=== PATIENT | female | born 1945 | race African-American/Black ===

== ENCOUNTER 2017-04-26 11:34 | Inpatient (IN) | payer MEDICARE, MEDICAID ==
--- NOTE | 2017-04-26 12:06 | ED Physician Chart ---
Chief Complaint/HPI - Patient Information Date Seen:: 04/26/17 Time Seen:: 11:45 Chief Complaint:: lethargy History of Present Illness:: Patient was noted to be more lethargic than normal this morning. The staff at her senior care facility attributed that to the [place] 7.5 mg/ 325 mg that she takes 4 times per day. Patient was in [facility] for 10 days being discharged April 14. She was admitted there for confusion as demonstrated by garbled speech. She was diagnosed as having stage IV decubiti, sepsis, hypotension, urinary tract infection. and a heart valve infection. Paramedics EKG showed a sinus tach at a rate of 150. Daughter stressed that the patient is a DNR. Allergies:: Allergies Allergy/AdvReac Type Severity Reaction Status Date / Time No Known Allergies Allergy Verified 04/26/17 11:37 Vitals:: Vital Signs - 8 hr 04/26/17 11:37 Temp 98.6 F HR 115 RR 23 BP 90/40 O2 Sat % 82 Historian:: Family Member Review:: Nurse's Note Reviewed Review of Systems - Review of Systems General/Constitutional: No fever, No chills Skin: Skin lesions Head: No headache Eyes: No loss of vision ENT: No earache Neck: No neck pain Cardio Vascular: No chest pain Pulmonary: No SOB GI: No vomiting, No diarrhea G/U: No dysuria, No hematuria Musculoskeletal: No bone or joint pain Endocrine: No polyuria Hematopoietic: No bruising Allergic/Immuno: No urticaria Neurological: Confusion Past Medical History - Past Medical History Past Medical History: Other (status post sepsis; status post urinary tract infection; arthritis of knee and hip; anemia; hypothyroidism; malnutrition; hyperlipidemia; mentioned) Family History: HTN Social History: Non Smoker, No Alcohol Surgical History: PEG/GTube, other (debridement of sacral decubiti) Psychiatricy History: Other Family Medical History - Family Member Mother History Unknown: Yes Physical Exam - Physical Examination Other Gen/Cons comments:: Chronically ill-appearing; nonverbal Head: Atraumatic Eyes: Lids, conjuctiva normal, PERRL Other Eyes comments:: Pupils about 1 mm Skin: Nl inspection, No rash ENMT: External ears, nose nl, Lips, teeth, gums nl Neck: No bruit, No mass Respiratory: Nl effort/Exclusion, Clear to Auscultation Cardio Vascular: RRR, NL S1 S2 GI: Nondistended, No mass/bruits Other GI comments:: Diffuse abdominal tenderness Other Extremities comments:: 2.5 out of 4 bilateral pretibial pitting edema Neuro/Psych: No focal deficits Labs/Radiology/EKG Results - Lab Results Results: Laboratory Results - last 24 hr 04/26/17 04/26/17 04/26/17 12:15 12:16 12:16 WBC 19.7 H RBC 3.19 L Hgb 8.7 L Hct 25.8 L MCV 81.1 MCH 27.3 MCHC Differential 33.6 RDW 20.6 H Plt Count 539 H MPV 8.1 Band Neutrophils % 2 Neutrophils (Manual) 80 Lymphocytes 7 L Monocytes 10 Eosinophils 1 Platelet Estimate INCREASED PLATELETS Platelet Morphology GIANT PLATELETS SEEN Anisocytosis 1+ RBC Morph Micro Appear ABNORMAL Sodium 131 L Potassium 4.2 Chloride 101 Carbon Dioxide 24.8 Anion Gap 9.4 BUN 24 Creatinine 1.0 Est GFR ( Amer) TNP Est GFR (Non-Af Amer) TNP BUN/Creatinine Ratio 24.0 Glucose 136 H Whole Bld Lactic Acid Calcium 8.2 L Lipase Urine Source [place] Urine Color YELLOW Urine Clarity SLIGHTLY CLOUDY Urine pH 5.0 Ur Specific [place] 1.020 Urine Protein 100 H Urine Glucose (UA) NEGATIVE Urine Ketones TRACE Urine Blood MODERATE H Urine Nitrate NEGATIVE Urine Bilirubin NEGATIVE Urine Urobilinogen 1.0 Ur Leukocyte Esterase SMALL H Urine RBC 5-10 H Urine WBC 10-25 H Ur Epithelial Cells MODERATE Urine Bacteria MANY Urine Yeast MODERATE H 04/26/17 04/26/17 12:16 12:16 WBC RBC Hgb Hct MCV MCH MCHC Differential RDW Plt Count MPV Band Neutrophils % Neutrophils (Manual) Lymphocytes Monocytes Eosinophils Platelet Estimate Platelet Morphology Anisocytosis RBC Morph Micro Appear Sodium Potassium Chloride Carbon Dioxide Anion Gap BUN Creatinine Est GFR ( Amer) Est GFR (Non-Af Amer) BUN/Creatinine Ratio Glucose Whole Bld Lactic Acid 3.44 H* Calcium Lipase 7 L Urine Source Urine Color Urine Clarity Urine pH Ur Specific [place] Urine Protein Urine Glucose (UA) Urine Ketones Urine Blood Urine Nitrate Urine Bilirubin Urine Urobilinogen Ur Leukocyte Esterase Urine RBC Urine WBC Ur Epithelial Cells Urine Bacteria Urine Yeast - Radiology Results Comments:: Chest x-ray showed bilateral pneumonia with superimposed congestion and right pleural effusion. CT abdomen and pelvis showed anasarca, fecal impaction and calcified uterine fibroid. Assessment - Assessment General Assessment: Needs admission for pneumonia. She may also have an infected sacral decubiti. ED Septic Shock - . Is Septic Shock (SBP<90, OR Lactate>4 mmol\L) present?: No - <6hrs of presentation: Vital Signs: Vital Signs - 8 hr 04/26/17 11:37 Temp 98.6 F HR 115 RR 23 BP 90/40 O2 Sat % 82 Reassessment (Disposition) - Reassessment Reassessment Condition:: Unchanged - Diagnosis Diagnosis:: Sacral decubiti; leukocytosis; pneumonia; sepsis; anemia - Patient Disposition Admitted to:: Med/Surg Spoke to:: Chuckie Bellamy Admitting Medical Physician:: Chuckie Bellamy Condition at Disposition:: Unchanged
[2017-04-26] MEDS ORDERED: Mag Sulfate 2gm/50mL Premix 2 GM/50 ML BAG IV ONE ×2 (12:14→12:20)
[2017-04-26 12:28] LABS: HEMATOCRIT 25.8 % (35.0-45.0); HEMOGLOBIN 8.7 gm/dL (11.7-16.1); MEAN CELL VOLUME 81.1 fl (81-100); MEAN CORPUSCULAR HEMOGLOBIN 27.3 pg (27.0-31.0); MEAN CORPUSCULAR HGB CONC 33.6 pg (28.0-36.0); MEAN PLATELET VOLUME 8.1 fl; PLATELET COUNT 539 Th/cmm (150-400); RED BLOOD COUNT 3.19 Mil/cmm (3.80-5.20); RED CELL DISTRIBUTION WIDTH 20.6 % (11.5-20.0)
[2017-04-26 12:38] LABS: WHITE BLOOD COUNT 19.7 Th/cmm (4.8-10.8)
[2017-04-26 12:41] LABS: URINE BILIRUBIN NEGATIVE (NEGATIVE); URINE BLOOD MODERATE (NEGATIVE); URINE COLOR YELLOW; URINE GLUCOSE (UA) NEGATIVE (NEGATIVE); URINE KETONE TRACE mg/dL (NEGATIVE); URINE PROTEIN 100 mg/dL (NEGATIVE)
[2017-04-26 12:42] LABS: ANION GAP 9.4 (7.0-16.0); BUN - UREA NITROGEN 24 mg/dL (7-25); CALCIUM SERUM 8.2 mg/dL (8.6-10.3); CARBON DIOXIDE 24.8 mEq/L (21.0-31.0); CHLORIDE 101 mEq/L (98-107); GLUCOSE 136 mg/dL (70-105); POTASSIUM SERUM 4.2 mEq/L (3.5-5.1); SODIUM SERUM 131 mEq/L (136-145)
[2017-04-26 13:19] LABS: URINE BACTERIA MANY /hpf (NONE SEEN); URINE EPITHELIAL CELLS MODERATE /lpf (FEW)
[2017-04-26 13:41] LABS: BAND NEUTROPHILE 2 % (0-10); EOSINOPHIL 1 % (0-5); NEUTROPHILS 80 % (40-80); TOTAL CELLS COUNTED 100
[2017-04-26 13:42] LABS: ANISOCYTOSIS 1+; PLATELET ESTIMATE INCREASED PLATELETS (NORMAL); PLATELET MORPHOLOGY GIANT PLATELETS SEEN (NORMAL)
--- NOTE | 2017-04-26 13:49 | Diagnostic Imaging Report ---
Exam: CT examination abdomen pelvis. HISTORY: Abdominal pain. Total DLP equals 746 CTDI equals 16.4 Findings: The study is limited due to patient being agitated and combative. Multiple contiguous thin section of the abdomen pelvis obtained from lower thorax to pubic symphysis without administration intravenous or oral contrast material. No prior studies available comparison. The study demonstrates bilateral pneumonic infiltrates with superimposed effusions. Pulmonary edema changes cannot be excluded. The visualized liver parenchyma and spleen are intact. Gastrostomy tube is noted in the stomach. The stomach distended with food content. Diffuse atherosclerotic changes of abdominal aorta appreciated. The gallbladder is intact. Residual contrast material most likely from previous examinations present in the colon. The kidneys demonstrate no evidence of obstructive uropathy or nephrolithiasis. The visualized adrenal glands are intact. Large amount of fecal content is noted throughout the colon. There is evidence for enlarged uterus with extensive fibroid infiltration there is evidence for multiple calcification within the urinary fibroid mass. The overall diameter of the uterus is 10.5 cm in transverse diameter. There is evidence of anasarca. Urinary bladder contains a Bello catheter. Bony structures demonstrate no evidence for lytic or blastic changes. IMPRESSION: 1. Bilateral pneumonia superimposed effusions aeration of pulmonary edema/congestive heart failure changes 2. Distended stomach with food content the gastrostomy tube in the stomach 3. Fecal impaction, question of residual contrast material from previous examination. 4. Enlarged fibroid uterus with calcifications.+ 5. Anasarca
--- NOTE | 2017-04-26 14:33 | Diagnostic Imaging Report ---
Exam: Portable examination of chest HISTORY: Possible pneumonia. Findings: Portable upright examination of the chest at 1245 hours reviewed no prior studies available comparison. Bony thorax is unremarkable for degenerative osteopenia. Mediastinal structures midline the heart is not enlarged. Bilateral pneumonic infiltrates appreciated with mild congestion. There is evidence for right pleural effusion. Right-sided PICC line terminates in superior vena cava. IMPRESSION: Bilateral pneumonia superimposed congestion. Right pleural effusion. Follow-up examination recommended.
[2017-04-26] MEDS ORDERED: Piperacillin Sodium/Tazobact 3.375 gm Vial IV ONE (15:24)
[2017-04-26] MEDS ORDERED: Sodium Chloride 0.45% 1,000 ML IV SCH (17:10)
[2017-04-26] MEDS ORDERED: Morphine Sulfate 2 mg/mL 1mL Syr IVP PRN (19:36)
[2017-04-26] MEDS ORDERED: Vancomycin HCl 500 MG in Sodium Chloride 0.9% 100 ML IV SCH (20:00)
--- NOTE | 2017-04-26 22:16 | Consultation ---
Consult Note - Consult Note Service Date: 04/26/17 Referring Physician: Chuckie Bellamy Consult Note: PHYSICIAN Consultation Note: Date of Admission: 04/26/17 Purpose of Consultation: Sepsis, pneumonia. Chief Complaint: Patient HARSHIL AGN was admitted to location Intensive Care Unit with SEPSIS, PNA. History of Present Illness: Patient is 71-year-old female with a past medical history of Arthritis of knee and hip; anemia; hypothyroidism; malnutrition; hyperlipidemia, dementia, hypothymism, patient history or sepsis and UTI, brought in from nursing facility for altered mental status. As per the records patient was recently discharged from [facility]. As patient became more lethargic and altered. She was sent to the ER for further evaluation and management. On initial evaluation, patient was afebrile, she was tachycardic with heart rate in 150s and WBC count was 19,700 with left shift. Her lactic acid was also elevated, it was 3.44 and it came down to 2.79. Urinalysis showed pyuria and bacteria. CT scan of the abdomen and pelvis showed bilateral infiltrates with congestion. Patient was started on vancomycin and Zosyn. An ID consult was called for further antibiotic management. Past Medical History: Arthritis of knee and hip; anemia; hypothyroidism; malnutrition; hyperlipidemia , dementia, hypothymism, patient history or sepsis and UTI. Allergies Allergy/AdvReac Type Severity Reaction Status Date / Time No Known Allergies Allergy Verified 04/26/17 11:37 Vital Signs Temp 98.2 F 04/26/17 21:00 Pulse 113 04/26/17 21:00 Resp 23 04/26/17 21:00 BP 114/46 04/26/17 21:00 Pulse Ox 86 04/26/17 21:00 Intake & Output 04/26/17 04/26/17 04/27/17 06:59 18:59 06:59 Intake Total 50 Balance 50 Intake: Intake, IV Amount 50 Laboratory Results - last 24 hr 04/26/17 04/26/17 19:09 21:17 Whole Bld Lactic Acid 2.09 H* 1.77 Home Medication Medication Instructions Recorded Type Arginine/Ascorbate Sod/Amalia AC 1 each PO DAILY 04/26/17 History [Arginaid Powder] Ascorbic Acid [Vitamin C] 500 mg GT DAILY 04/26/17 History Atorvastatin Calcium [Lipitor] 10 mg GT DAILY 04/26/17 History Enoxaparin [Lovenox] 40 mg SUBQ DAILY 04/26/17 History Ferrous Sulfate [Iron] 300 mg GT DAILY 04/26/17 History Hydrocodone/Acetaminophen [[place] 1 tab GT Q6H 04/26/17 History 7.5-325 Tablet] L. Acidophilus/L.bulgaricus 1 each GT BID 04/26/17 History [Lactinex Chewable Tablet] Lactulose 20 gm GT DAILY PRN 04/26/17 History Levothyroxine [Synthroid] 75 mcg GT DAILY 04/26/17 History Lorazepam [Ativan] 0.5 mg PO Q12H PRN 04/26/17 History Magnesium Oxide [Mag-Oxide] 400 mg GT BID 04/26/17 History Metoprolol Succinate 25 mg GT DAILY 04/26/17 History Mirtazapine [Remeron] 15 mg GT HS 04/26/17 History Multivitamin [Daily Amalia] 1 tab GT DAILY 04/26/17 History Vit B12/Intrinsic Fact/Folate 1 each GT BID 04/26/17 History [Intrinsi [id number] Tablet] Zinc Sulfate 220 mg GT DAILY 04/26/17 History Current Medications Generic Name Dose Route Start Last Admin Trade Name Freq PRN Reason Stop Dose Admin Furosemide 40 mg 04/27/17 09:00 Lasix IVP 04/27/17 09:01 X1 ONE Norepinephrine Bitartrate 4 mg 254 mls @ 0 mls/hr 04/26/17 17:20 / Dextrose IV 06/25/17 17:19 TITR PRN BP MAINTENANCE (PER PROTOCOL) Protocol Per Protocol Piperacillin Sod/Tazobactam 50 mls @ 100 mls/hr 04/26/17 19:00 Sod 3.375 gm/ Sodium Chloride IV 06/25/17 18:59 Q6HR FRANCINE Vancomycin HCl 500 mg/ Sodium 100 mls @ 100 mls/hr 04/26/17 20:00 04/26/17 19 :30 Chloride IV 06/25/17 19:59 100 mls/hr Q12H FRANCINE Administration Miscellaneous 1 ea 04/26/17 17:15 Pharmacy To Dose 06/25/17 17:14 PRN FRANCINE Miscellaneous 1 ea 04/26/17 17:15 Pharmacy To Dose 06/25/17 17:14 PRN FRANCINE Morphine Sulfate 1 mg 04/26/17 19:36 Morphine IVP 06/25/17 19:35 Q4HR PRN Pain (Moderate) Morphine Sulfate 2 mg 04/26/17 19:37 Morphine IVP 06/25/17 19:36 Q4HR PRN Pain (Severe) Review of Systems: A 12 point ROS was reviewed with the pertinent positive and negatives noted in the HPI. Physical Exam: General: Confused. Mildly malnourished. HEENT: Head: Normocephalic, atraumatic. Oral cavity: Moist, pink tongue. Eyes : PERRLA is present. No icterus. Pupils PERRLA. EOMI. Neck: Supple, no JVD, no carotid date. No use of X his neck muscles. Cardio: S1 and S2 within normal limits and rhythm no murmur no gallop. Respiratory: Vesicular breath sound. occasional crackles. Abdominal: Soft, nontender, nondistended bowel sounds present G-tube site is clear. Genital/Urinary: Bello catheter. Clear urine. Extremities: Cyanosis, no clubbing, no edema. Right PICC line in right Neurological: Confused. No neck rigidity. Assessment: 1. Severe sepsis. 2. Pneumonia. 3. UTI. 4. Dementia. 5. Hypothyroidism. Plan: Will continue vancomycin and Zosyn. Follow-up sepsis workup. Follow-up lactic acid in the morning as it is trending down. Thank you, Dr. Bellamy, for involving me in taking care of this patient. Lisa, Jules Lundberg M.D. [id number]
[2017-04-27] MEDS ORDERED: Piperacillin Sodium/Tazobact 3.375 gm Vial IV ONE ×2 (00:36→06:06)
[2017-04-27] MEDS: Morphine Sulfate 2 mg/mL 1mL Syr IVP PRN ×2 (00:50→07:13)
[2017-04-27 05:30] LABS: HEMATOCRIT 27.4 % (35.0-45.0); MEAN CELL VOLUME 81.2 fl (81-100); MEAN CORPUSCULAR HEMOGLOBIN 26.8 pg (27.0-31.0); MEAN PLATELET VOLUME 8.4 fl; PLATELET COUNT 599 Th/cmm (150-400); RED BLOOD COUNT 3.37 Mil/cmm (3.80-5.20)
[2017-04-27 05:41] LABS: ALB/GLOB RATIO 0.6 (1.0-1.8); ALKALINE PHOSPHATASE 439 U/L (34-104); BILIRUBIN,TOTAL 0.3 mg/dL (0.3-1.0); BUN - UREA NITROGEN 27 mg/dL (7-25); CALCIUM SERUM 8.3 mg/dL (8.6-10.3); CARBON DIOXIDE 27.1 mEq/L (21.0-31.0); CHLORIDE 102 mEq/L (98-107); CHOLESTEROL 95 mg/dL (<200); CREATININE - SERUM 0.9 mg/dL (0.6-1.2); GLUCOSE 116 mg/dL (70-105); PHOSPHOROUS 1.6 mg/dL (2.5-5.0); POTASSIUM SERUM 4.1 mEq/L (3.5-5.1); SGOT 58 U/L (13-39); SGPT/ALT 49 U/L (7-52); SODIUM SERUM 133 mEq/L (136-145); TRIGLYCERIDES 105 mg/dL (<150)
[2017-04-27 06:20] LABS: WHITE BLOOD COUNT 18.1 Th/cmm (4.8-10.8)
[2017-04-27 06:37] LABS: ANISOCYTOSIS 1+; BAND NEUTROPHILE 4 % (0-10); EOSINOPHIL 1 % (0-5); NEUTROPHILS 88 % (40-80); PLATELET ESTIMATE INCREASED PLATELETS (NORMAL); PLATELET MORPHOLOGY GIANT PLATELETS SEEN (NORMAL); TOTAL CELLS COUNTED 100
--- NOTE | 2017-04-27 09:47 | History and Physical ---
History of Present Illness - HPI Chief Complaint: pt is lethargic HPI: 71 year old female from SNF with sepsis and pneumonia. Patient present with UTI. PAtient is lethargic. Vital Signs: Last Vital Signs Temp 98.9 F 04/27/17 04:00 Pulse 128 04/27/17 08:07 Resp 22 04/27/17 08:07 BP 108/61 04/27/17 06:00 Pulse Ox 91 04/27/17 06:00 Family Medical History - Family Member Mother History Unknown: Yes Social History Smoke: No Alcohol: None Drugs: None Lives: Snf Domestic Violence: Negative - Medications Home Medications: Home Medication Medication Instructions Recorded Type Arginine/Ascorbate Sod/Amalia AC 1 each PO DAILY 04/26/17 History [Arginaid Powder] Ascorbic Acid [Vitamin C] 500 mg GT DAILY 04/26/17 History Atorvastatin Calcium [Lipitor] 10 mg GT DAILY 04/26/17 History Enoxaparin [Lovenox] 40 mg SUBQ DAILY 04/26/17 History Ferrous Sulfate [Iron] 300 mg GT DAILY 04/26/17 History Hydrocodone/Acetaminophen [[place] 1 tab GT Q6H 04/26/17 History 7.5-325 Tablet] L. Acidophilus/L.bulgaricus 1 each GT BID 04/26/17 History [Lactinex Chewable Tablet] Lactulose 20 gm GT DAILY PRN 04/26/17 History Levothyroxine [Synthroid] 75 mcg GT DAILY 04/26/17 History Lorazepam [Ativan] 0.5 mg PO Q12H PRN 04/26/17 History Magnesium Oxide [Mag-Oxide] 400 mg GT BID 04/26/17 History Metoprolol Succinate 25 mg GT DAILY 04/26/17 History Mirtazapine [Remeron] 15 mg GT HS 04/26/17 History Multivitamin [Daily Amalia] 1 tab GT DAILY 04/26/17 History Vit B12/Intrinsic Fact/Folate 1 each GT BID 04/26/17 History [Intrinsi [id number] Tablet] Zinc Sulfate 220 mg GT DAILY 04/26/17 History - Allergies Allergies/Adverse Reactions: Allergies Allergy/AdvReac Type Severity Reaction Status Date / Time No Known Allergies Allergy Verified 04/26/17 11:37 Review of Systems - Review of Systems Constitutional: Report: No Significant Eyes: Report: No Significant ENT: Report: No Significant Respiratory: Report: Other (pneumonia) Cardiovascular: Report: Other Gastrointestinal: Report: No Significant Genitourinary: Report: No Significant Musculoskeletal: Report: No Significant Skin: Report: No Significant Neurological: Report: No Significant, Weakness, Confusion - Lab Results All Lab Results last 24 hours: Laboratory Last Values WBC 18.1 Th/cmm (4.8-10.8) H 04/27/17 05:03 RBC 3.37 Mil/cmm (3.80-5.20) L 04/27/17 05:03 Hgb 9.0 gm/dL (11.7-16.1) L 04/27/17 05:03 Hct 27.4 % (35.0-45.0) L 04/27/17 05:03 MCV 81.2 fl (81-100) 04/27/17 05:03 MCH 26.8 pg (27.0-31.0) L 04/27/17 05:03 MCHC Differential 33.0 pg (28.0-36.0) 04/27/17 05:03 RDW 21.0 % (11.5-20.0) H 04/27/17 05:03 Plt Count 599 Th/cmm (150-400) H 04/27/17 05:03 MPV 8.4 fl 04/27/17 05:03 Band Neutrophils % 4 % (0-10) 04/27/17 05:03 Neutrophils (Manual) 88 % (40-80) H 04/27/17 05:03 Lymphocytes 6 % (20-50) L 04/27/17 05:03 Monocytes 1 % (2-10) L 04/27/17 05:03 Eosinophils 1 % (0-5) 04/27/17 05:03 Nucleated RBCs 2.0 % (0-0) H 04/27/17 05:03 Platelet Estimate INCREASED PLATELETS (NORMAL) 04/27/17 05:03 Platelet Morphology GIANT PLATELETS SEEN (NORMAL) 04/27/17 05:03 Anisocytosis 1+ 04/27/17 05:03 RBC Morph Micro Appear ABNORMAL (NORMAL) 04/27/17 05:03 Sodium 133 mEq/L (136-145) L 04/27/17 05:03 Potassium 4.1 mEq/L (3.5-5.1) 04/27/17 05:03 Chloride 102 mEq/L (98-107) 04/27/17 05:03 Carbon Dioxide 27.1 mEq/L (21.0-31.0) 04/27/17 05:03 Anion Gap 8.0 (7.0-16.0) 04/27/17 05:03 BUN 27 mg/dL (7-25) H 04/27/17 05:03 Creatinine 0.9 mg/dL (0.6-1.2) 04/27/17 05:03 Est GFR ( Amer) TNP 04/27/17 05:03 Est GFR (Non-Af Amer) TNP 04/27/17 05:03 BUN/Creatinine Ratio 30.0 04/27/17 05:03 Glucose 116 mg/dL (70-105) H 04/27/17 05:03 Whole Bld Lactic Acid 1.89 mmol/L (0.60-1.99) 04/27/17 05:03 Calcium 8.3 mg/dL (8.6-10.3) L 04/27/17 05:03 Phosphorus 1.6 mg/dL (2.5-5.0) L 04/27/17 05:03 Magnesium 2.0 mg/dL (1.9-2.7) 04/27/17 05:03 Total Bilirubin 0.3 mg/dL (0.3-1.0) 04/27/17 05:03 AST 58 U/L (13-39) H 04/27/17 05:03 ALT 49 U/L (7-52) 04/27/17 05:03 Alkaline Phosphatase 439 U/L (34-104) H 04/27/17 05:03 B-Natriuretic Peptide 1340.0 pg/mL (5.0-100.0) H 04/27/17 05:03 Total Protein 5.5 gm/dL (6.0-8.3) L 04/27/17 05:03 Albumin 2.1 gm/dL (3.7-5.3) L 04/27/17 05:03 Globulin 3.4 gm/dL 04/27/17 05:03 Albumin/Globulin Ratio 0.6 (1.0-1.8) L 04/27/17 05:03 Triglycerides 105 mg/dL (<150) 04/27/17 05:03 Cholesterol 95 mg/dL (<200) 04/27/17 05:03 LDL Cholesterol Direct 55 mg/dL (75-193) L 04/27/17 05:03 HDL Cholesterol 20 mg/dL (23-92) L 04/27/17 05:03 Lipase 7 U/L (11-82) L 04/26/17 12:16 Urine Source [place] 04/26/17 12:15 Urine Color YELLOW 04/26/17 12:15 Urine Clarity SLIGHTLY CLOUDY (CLEAR) 04/26/17 12:15 Urine pH 5.0 04/26/17 12:15 Ur Specific [place] 1.020 (1.005-1.030) 04/26/17 12:15 Urine Protein 100 mg/dL (NEGATIVE) H 04/26/17 12:15 Urine Glucose (UA) NEGATIVE mg/dL (NEGATIVE) 04/26/17 12:15 Urine Ketones TRACE mg/dL (NEGATIVE) 04/26/17 12:15 Urine Blood MODERATE (NEGATIVE) H 04/26/17 12:15 Urine Nitrate NEGATIVE (NEGATIVE) 04/26/17 12:15 Urine Bilirubin NEGATIVE (NEGATIVE) 04/26/17 12:15 Urine Urobilinogen 1.0 E.U./dL (0.2 - 1.0) 04/26/17 12:15 Ur Leukocyte Esterase SMALL (NEGATIVE) H 04/26/17 12:15 Urine RBC 5-10 /hpf (0-5) H 04/26/17 12:15 Urine WBC 10-25 /hpf (0-5) H 04/26/17 12:15 Ur Epithelial Cells MODERATE /lpf (FEW) 04/26/17 12:15 Urine Bacteria MANY /hpf (NONE SEEN) 04/26/17 12:15 Urine Yeast MODERATE /hpf (NONE SEEN) H 04/26/17 12:15 Laboratory Results - last 24 hr 04/26/17 04/26/17 04/27/17 19:09 21:17 05:03 WBC 18.1 H RBC 3.37 L Hgb 9.0 L Hct 27.4 L MCV 81.2 MCH 26.8 L MCHC Differential 33.0 RDW 21.0 H Plt Count 599 H MPV 8.4 Band Neutrophils % 4 Neutrophils (Manual) 88 H Lymphocytes 6 L Monocytes 1 L Eosinophils 1 Nucleated RBCs 2.0 H Platelet Estimate INCREASED PLATELETS Platelet Morphology GIANT PLATELETS SEEN Anisocytosis 1+ RBC Morph Micro Appear ABNORMAL Sodium Potassium Chloride Carbon Dioxide Anion Gap BUN Creatinine Est GFR ( Amer) Est GFR (Non-Af Amer) BUN/Creatinine Ratio Glucose Whole Bld Lactic Acid 2.09 H* 1.77 Calcium Phosphorus Magnesium Total Bilirubin AST ALT Alkaline Phosphatase B-Natriuretic Peptide Total Protein Albumin Globulin Albumin/Globulin Ratio Triglycerides Cholesterol LDL Cholesterol Direct HDL Cholesterol 04/27/17 04/27/17 04/27/17 05:03 05:03 05:03 WBC RBC Hgb Hct MCV MCH MCHC Differential RDW Plt Count MPV Band Neutrophils % Neutrophils (Manual) Lymphocytes Monocytes Eosinophils Nucleated RBCs Platelet Estimate Platelet Morphology Anisocytosis RBC Morph Micro Appear Sodium 133 L Potassium 4.1 Chloride 102 Carbon Dioxide 27.1 Anion Gap 8.0 BUN 27 H Creatinine 0.9 Est GFR ( Amer) TNP Est GFR (Non-Af Amer) TNP BUN/Creatinine Ratio 30.0 Glucose 116 H Whole Bld Lactic Acid 1.89 Calcium 8.3 L Phosphorus Magnesium Total Bilirubin 0.3 AST 58 H ALT 49 Alkaline Phosphatase 439 H B-Natriuretic Peptide 1340.0 H Total Protein 5.5 L Albumin 2.1 L Globulin 3.4 Albumin/Globulin Ratio 0.6 L Triglycerides 105 Cholesterol 95 LDL Cholesterol Direct 55 L HDL Cholesterol 20 L 04/27/17 05:03 WBC RBC Hgb Hct MCV MCH MCHC Differential RDW Plt Count MPV Band Neutrophils % Neutrophils (Manual) Lymphocytes Monocytes Eosinophils Nucleated RBCs Platelet Estimate Platelet Morphology Anisocytosis RBC Morph Micro Appear Sodium Potassium Chloride Carbon Dioxide Anion Gap BUN Creatinine Est GFR ( Amer) Est GFR (Non-Af Amer) BUN/Creatinine Ratio Glucose Whole Bld Lactic Acid Calcium Phosphorus 1.6 L Magnesium 2.0 Total Bilirubin AST ALT Alkaline Phosphatase B-Natriuretic Peptide Total Protein Albumin Globulin Albumin/Globulin Ratio Triglycerides Cholesterol LDL Cholesterol Direct HDL Cholesterol - Assessment Assessment: pt admitted for sepsis and pneumonia - Plan Plan: as per ordersheet
[2017-04-27] MEDS ORDERED: VTE Chemical Prophylaxis Screen/Admission MC PRN (11:52)
[2017-04-27] MEDS ORDERED: Venelex 60gm Tube TP SCH (12:00)
[2017-04-27 12:24] LABS: ABG SOURCE Arterial; BE(B) 7.1 mEq/L (-3.0-3.0); FIO2 100; HCO3 30.5 mEq/L (20.0-26.0); pH 7.53 (7.35-7.45)
[2017-04-27] MEDS ORDERED: Probiotic Screen MC PRN (13:44)
--- NOTE | 2017-04-27 16:27 | Consultation ---
Consult Note - Consult Note Service Date: 04/27/17 Referring Physician: Chuckie Bellamy Consult Note: PHYSICIAN Consultation Note: Date of Admission: 04/26/17 Purpose of Consultation: Septic shock suppression of ventricular tachycardia Chief Complaint: Nonverbal History of Present Illness: Patient HARSHIL GAN was admitted to location Intensive Care Unit with SEPSIS, PNA. Past Medical History: Diagnoses SEPSIS, UNSPECIFIED ORGANISM (04/26/17) ANEMIA, UNSPECIFIED (04/26/17) HYPOTHYROIDISM, UNSPECIFIED (04/26/17) MILD PROTEIN-CALORIE MALNUTRITION (04/26/17) HYPERLIPIDEMIA, UNSPECIFIED (04/26/17) UNSPECIFIED DEMENTIA WITHOUT BEHAVIORAL DISTURBANCE (04/26/17) PNEUMONIA, UNSPECIFIED ORGANISM (04/26/17) PRESSURE ULCER OF SACRAL REGION, UNSPECIFIED STAGE (04/26/17) UNSPECIFIED OSTEOARTHRITIS, UNSPECIFIED SITE (04/26/17) URINARY TRACT INFECTION, SITE NOT SPECIFIED (04/26/17) SEVERE SEPSIS WITHOUT SEPTIC SHOCK (04/26/17) DO NOT RESUSCITATE (04/26/17) Allergies Allergy/AdvReac Type Severity Reaction Status Date / Time No Known Allergies Allergy Verified 04/26/17 11:37 Vital Signs Temp 98.9 F 04/27/17 04:00 Pulse 134 04/27/17 16:00 Resp 28 04/27/17 16:00 BP 93/55 04/27/17 16:00 Pulse Ox 100 04/27/17 16:00 Intake & Output 04/26/17 04/27/17 04/27/17 18:59 06:59 18:59 Intake Total 50 1020 50 Output Total 1000 Balance 50 20 50 Weight (lbs) 80.15 kg Intake: Intake, IV Amount 50 200 50 Piperacillin Sodium/ 100 50 Tazobact 3.375 gm In Sodium Chloride 0.9% 50 ml @ 100 mls/hr IV Q6HR FRANCIEN Rx#:[id number] Vancomycin HCl 500 mg In 100 Sodium Chloride 0.9% 100 ml @ 100 mls/hr IV Q12H FRANCINE Rx#:[id number] Tube Feeding 820 Output: Urine 1000 Laboratory Results - last 24 hr 04/26/17 04/26/17 04/27/17 19:09 21:17 05:03 WBC 18.1 H RBC 3.37 L Hgb 9.0 L Hct 27.4 L MCV 81.2 MCH 26.8 L MCHC Differential 33.0 RDW 21.0 H Plt Count 599 H MPV 8.4 Band Neutrophils % 4 Neutrophils (Manual) 88 H Lymphocytes 6 L Monocytes 1 L Eosinophils 1 Nucleated RBCs 2.0 H Platelet Estimate INCREASED PLATELETS Platelet Morphology GIANT PLATELETS SEEN Anisocytosis 1+ RBC Morph Micro Appear ABNORMAL Specimen Source Sample Site pH pCO2 pO2 HCO3 Base Excess O2 Saturation Rolando Test Vent Rate Inspired O2 Tidal Volume PEEP Pressure (ins/psv/peep) Critical Value Sodium Potassium Chloride Carbon Dioxide Anion Gap BUN Creatinine Est GFR ( Amer) Est GFR (Non-Af Amer) BUN/Creatinine Ratio Glucose Whole Bld Lactic Acid 2.09 H* 1.77 Calcium Phosphorus Magnesium Total Bilirubin AST ALT Alkaline Phosphatase B-Natriuretic Peptide Total Protein Albumin Globulin Albumin/Globulin Ratio Triglycerides Cholesterol LDL Cholesterol Direct HDL Cholesterol 04/27/17 04/27/17 04/27/17 05:03 05:03 05:03 WBC RBC Hgb Hct MCV MCH MCHC Differential RDW Plt Count MPV Band Neutrophils % Neutrophils (Manual) Lymphocytes Monocytes Eosinophils Nucleated RBCs Platelet Estimate Platelet Morphology Anisocytosis RBC Morph Micro Appear Specimen Source Sample Site pH pCO2 pO2 HCO3 Base Excess O2 Saturation Rolando Test Vent Rate Inspired O2 Tidal Volume PEEP Pressure (ins/psv/peep) Critical Value Sodium 133 L Potassium 4.1 Chloride 102 Carbon Dioxide 27.1 Anion Gap 8.0 BUN 27 H Creatinine 0.9 Est GFR ( Amer) TNP Est GFR (Non-Af Amer) TNP BUN/Creatinine Ratio 30.0 Glucose 116 H Whole Bld Lactic Acid 1.89 Calcium 8.3 L Phosphorus Magnesium Total Bilirubin 0.3 AST 58 H ALT 49 Alkaline Phosphatase 439 H B-Natriuretic Peptide 1340.0 H Total Protein 5.5 L Albumin 2.1 L Globulin 3.4 Albumin/Globulin Ratio 0.6 L Triglycerides 105 Cholesterol 95 LDL Cholesterol Direct 55 L HDL Cholesterol 20 L 04/27/17 04/27/17 05:03 12:18 WBC RBC Hgb Hct MCV MCH MCHC Differential RDW Plt Count MPV Band Neutrophils % Neutrophils (Manual) Lymphocytes Monocytes Eosinophils Nucleated RBCs Platelet Estimate Platelet Morphology Anisocytosis RBC Morph Micro Appear Specimen Source Arterial Sample Site RB pH 7.53 H pCO2 36.0 pO2 142.0 H HCO3 30.5 H Base Excess 7.1 H O2 Saturation 99.0 Rolando Test NA Vent Rate NA Inspired O2 100 Tidal Volume NA PEEP NA Pressure (ins/psv/peep) NA Critical Value E.MARQUEZ Sodium Potassium Chloride Carbon Dioxide Anion Gap BUN Creatinine Est GFR ( Amer) Est GFR (Non-Af Amer) BUN/Creatinine Ratio Glucose Whole Bld Lactic Acid Calcium Phosphorus 1.6 L Magnesium 2.0 Total Bilirubin AST ALT Alkaline Phosphatase B-Natriuretic Peptide Total Protein Albumin Globulin Albumin/Globulin Ratio Triglycerides Cholesterol LDL Cholesterol Direct HDL Cholesterol Home Medication Medication Instructions Recorded Type Arginine/Ascorbate Sod/Amalia AC 1 each PO DAILY 04/26/17 History [Arginaid Powder] Ascorbic Acid [Vitamin C] 500 mg GT DAILY 04/26/17 History Atorvastatin Calcium [Lipitor] 10 mg GT DAILY 04/26/17 History Enoxaparin [Lovenox] 40 mg SUBQ DAILY 04/26/17 History Ferrous Sulfate [Iron] 300 mg GT DAILY 04/26/17 History Hydrocodone/Acetaminophen [Geary 1 tab GT Q6H 04/26/17 History 7.5-325 Tablet] L. Acidophilus/L.bulgaricus 1 each GT BID 04/26/17 History [Lactinex Chewable Tablet] Lactulose 20 gm GT DAILY PRN 04/26/17 History Levothyroxine [Synthroid] 75 mcg GT DAILY 04/26/17 History Lorazepam [Ativan] 0.5 mg PO Q12H PRN 04/26/17 History Magnesium Oxide [Mag-Oxide] 400 mg GT BID 04/26/17 History Metoprolol Succinate 25 mg GT DAILY 04/26/17 History Mirtazapine [Remeron] 15 mg GT HS 04/26/17 History Multivitamin [Daily Amalia] 1 tab GT DAILY 04/26/17 History Vit B12/Intrinsic Fact/Folate 1 each GT BID 04/26/17 History [Intrinsi [id number] Tablet] Zinc Sulfate 220 mg GT DAILY 04/26/17 History Current Medications Generic Name Dose Route Start Last Admin Trade Name Freq PRN Reason Stop Dose Admin Heparin Sodium (Porcine) 5,000 units 04/27/17 21:00 Heparin SUBQ 06/26/17 20:59 Q12HR FRANCINE Norepinephrine Bitartrate 4 mg 254 mls @ 0 mls/hr 04/26/17 17:20 / Dextrose IV 06/25/17 17:19 TITR PRN BP MAINTENANCE (PER PROTOCOL) Protocol Per Protocol Piperacillin Sod/Tazobactam 50 mls @ 100 mls/hr 04/26/17 19:00 04/27/17 14:38 Sod 3.375 gm/ Sodium Chloride IV 06/25/17 18:59 Infused Q6HR FRANCINE Infusion Vancomycin HCl 1 gm/ Sodium 250 mls @ 165 mls/hr 04/28/17 02:00 Chloride IV 06/27/17 01:59 Q12H FRANCINE Lactobacillus Rhamnosus 1 each 04/28/17 09:00 Culturelle PO 06/27/17 08:59 DAILY FRANCINE Lorazepam 1 mg 04/27/17 10:00 04/27/17 13:35 Ativan IVP 06/26/17 09:59 1 mg Q6HR PRN Administration Agitation Protocol Miscellaneous 1 04/26/17 17:15 Pharmacy To Dose 06/25/17 17:14 PRN FRANCINE Miscellaneous 1 04/27/17 11:52 Vte Chemical Prophylaxis Screen/ Admission 06/26/17 11:51 PRN PRN PROTOCOL Miscellaneous 1 04/27/17 13:44 Probiotic Screen 06/26/17 13:43 PRN PRN PROTOCOL Morphine Sulfate 1 mg 04/26/17 19:36 Morphine IVP 06/25/17 19:35 Q4HR PRN Pain (Moderate) Morphine Sulfate 2 mg 04/26/17 19:37 04/27/17 07:13 Morphine IVP 06/25/17 19:36 2 mg Q4HR PRN Administration Pain (Severe) Review of Systems: A 12 point ROS was reviewed with the pertinent positive and negatives noted in the HPI. Physical Exam: General: An remarkable multiple decubiti HEENT: Cardio: S1-S2 S3-S4 sinus tachycardia Respiratory: Wheezing and rhonchi Abdominal: No abdominal mass Genital/Urinary: Extremities: Peripheral pulses febrile multiple decubitus Neurological: No focal atypical deficit Assessment: Septic shock hypotension Supraventricular tachycardia Multiple decubitus ulcers Hyperlipidemia Hypotension Dementia Protein calorie malnutrition Pneumonia Urinary tract infection Plan: The family wants no code and hospice Signed, Eran Lundberg [id number]
--- NOTE | 2017-04-27 16:47 | Cardiology ---
Cardiology Report - Cardiology Cardiology: Date of Service: 04/26/[address] chelsea licea M-MODE ECHOCARDIOLGRAM: Lateral wall normal left ventricle hypertrophy moderate to severe ejection fraction 55% left Atrium normal aortic root is normal aortic leaflets are normal CONCLUSION: Hypertrophy left ventricle ejection fraction 55% 2D ECHO: Long axis mitral well normal left ventricle hypertrophy ejection fraction 55% left Atrium normal aortic root normal aortic leaflets are normal Short axis mitral well normal showed axis aortic valve normal line apical 4 chamber hypertrophy of the left ventricle ejection fraction 55% left Atrium normal right ventricle normal right atrium normal CONCLUSION: Moderate to severe hypertrophy left ventricle ejection fraction 55% DOPPLER: Mild aortic regurgitation severe tricuspid regurgitation mild pulmonary regurgitation and mild aortic regurgitation and right ventricular systolic pressure 46 mmHg trace pleural effusion CONCLUSION: Severe hypertrophy left ventricle ejection fraction 55% Mild aortic regurgitation Severe tricuspid regurgitation Mild pulmonary regurgitation Mild mitral regurgitation Mild pulmonary hypertension
[2017-04-28] MEDS ORDERED: Lactobacillus Rhamnosus 10 Billion CFU Capsule PO SCH (09:00)
== END 2017-04-27 21:20 | disposition hospice, home (50) | DRG 871 ==
LOC: ER 11:34 → MSI 15:37 → ICU 18:45
PROVIDERS: ADMIT Internal Medicine; ATTEND Internal Medicine
DX: A41.9 Sepsis, unspecified organism (principal); J18.9 Pneumonia, unspecified organism; L89.159 Pressure ulcer of sacral region, unspecified stage; N39.0 Urinary tract infection, site not specified; F03.90 Unspecified dementia, unspecified severity, without behavioral disturbance, psychotic disturbance, mood disturbance, and anxiety; D64.9 Anemia, unspecified; E44.1 Mild protein-calorie malnutrition; E03.9 Hypothyroidism, unspecified; E78.5 Hyperlipidemia, unspecified; Z66 Do not resuscitate; M19.90 Unspecified osteoarthritis, unspecified site; M17.0 Bilateral primary osteoarthritis of knee; M16.0 Bilateral primary osteoarthritis of hip; Z82.49 Family history of ischemic heart disease and other diseases of the circulatory system; Z93.1 Gastrostomy status; Z79.899 Other long term (current) drug therapy; Z68.28 Body mass index [BMI] 28.0-28.9, adult; R65.20 Severe sepsis without septic shock
CPT/HCPCS: 36415-UA; 36600-90; 71010-TC; 80048-TC; 80053-TC; 80061-TC; 81001-TC; 82803-TC; 83605; 83690-TC; 83735-TC; 83880-TC; 84100-TC; 85007-TC; 85027-TC; 87070-90; 87086-90; J1940; J2060; J2270; J2543; J3370; J3475; J7040; Z7610